=== PATIENT | female | born 1970 | race Caucasian/White ===

== ENCOUNTER 2020-06-19 15:59 | Emergency (ER) | payer BC, OTHER ==
[2020-06-19] MEDS ORDERED: Lidocaine 2% Viscous Solution 15 ML Cup PO ONE (16:19)
[2020-06-19] MEDS ORDERED: Acetaminophen/oxyCODONE 325-10 MG Tab PO ONE (16:19)
[2020-06-19] MEDS ORDERED: Benzocaine 20% Topical Spray UD MUCMEM ONE (16:19)
--- NOTE | 2020-06-19 16:24 | EDM.PDOC ---
ED HPI GENERAL MEDICAL PROBLEM - General Chief Complaint: ENT Problem Stated Complaint: INFECTED TOOTH Time Seen by Provider: 06/19/20 16:01 Source of Information: Reports: Patient History Limitations: Reports: No Limitations - History of Present Illness INITIAL COMMENTS - FREE TEXT/NARRATIVE: HISTORY AND PHYSICAL: History of present illness: Patient is a 49-year-old male who presents to the emergency room with complaints of right posterior molar dental pain since Saturday. She states she has had increased pain over the past few days, increased with chewing or clenching of h er jaw. She is concerned she may have an infection that requires antibiotics. She does have some soft tissue swelling along the gumline. Patient denies any fever, chills, headache, change in vision, syncope or near syncope. Denies any chest pain, back pain, shortness of breath or cough. Denies any GI or symptoms. Review of systems: As per history of present illness and below otherwise all systems reviewed and negative. Past medical history: As per history of present illness and as reviewed below otherwise noncontributory. Surgical history: As per history of present illness and as reviewed below otherwise noncontributory. Social history: See social history for further information Family history: As per history of present illness and as reviewed below otherwise noncontributor y. Physical exam: General: Well developed and well nourished 49-year-old female. Alert and orientated x 3. Nontoxic in appearance and in no mild distress to pain, crying. Vital signs are stable and have been reviewed by me. Nursing notes were reviewed. HEENT: Atraumatic, normocephalic, pupils equal and reactive bilaterally, negative for conjunctival pallor or scleral icterus, mucous membranes moist, dental decay to the left posterior lower molar with erythema along the gumline and tenderness. TMs normal bilaterally, throat clear, neck supple, nontender, trachea midline. No drooling or trismus noted. No meningeal signs. No hot potato voice noted. Lungs: Clear to auscultation, breath sounds equal bilaterally, chest nontender. Normal work of breathing, no accessory muscles used. Heart: S1S2, regular rate and rhythm without overt murmur Abdomen: Soft, nondistended, nontender. Negative for masses or hepatosplenomegaly. Negative for costovertebral tenderness. Skin: Intact, warm, dry. No lesions or rashes noted. Hematologic: No petechiae or purpra. Mucosa appropriate color and normal nail bed color and refill. Extremities: Atraumatic, moves all extremities per self without difficulty or deficits, negative for cords or calf pain. Neurovascular unremarkable. Neuro: Awake, alert, oriented. Cranial nerves II through XII unremarkable. Cerebellum unremarkable. Motor and sensory unremarkable throughout. Exam nonfocal. Psychiatric: Mood and affect are appropriate. Normal thought process. Answering questions appropriately. Notes: I have talked with the patient about today's findings, in addition to providing specific details for plan of care. Reassessment at the time of disposition demonstrates that the patient is in no acute distress. The patient is stable for discharge, counseling was provided and we discussed in great detail signs and symptoms that would prompt them to return to the Emergency Department. Medication, follow up and supportive care measures were reviewed and discussed. Voices understanding and is agreeable to plan of care. Denies any further questions or concerns at this time. Diagnostics: None Therapeutics: Percocet, Pen VK Prescription: Pen VK, Percocet Impression: Dental Abscess Plan: 1. Please take the antibiotic as prescribed. 2. Tylenol and/or ibuprofen as needed for pain management. "Tooth Balls" have been given to you; apply along the gumline every 2-3 hours as needed. Do not swallow these; external use only. 3. Follow-up with a dentist for definitive care. Return to the ED as needed and as discussed. Definitive disposition and diagnosis as appropriate pending reevaluation and review of above. Jaw Pain Score (Numeric/FACES): 8 - Related Data Allergies Allergy/AdvReac Type Severity Reaction Status Date / Time No Known Allergies Allergy Verified 06/19/20 16:13 Home Meds: Home Meds Albuterol Sulfate [Albuterol Sulfate HFA] 2 inh INH Q2HR PRN 08/08/14 [History] Budesonide [Pulmicort] 1 ampule INH BID PRN 09/07/14 [History] Penicillin V Potassium 500 mg PO Q8HR 10 Days #30 tab 06/19/20 [Rx] Past Medical History - Past Health History Medical/Surgical History: Denies Medical/Surgical History HEENT History: Reports: None Cardiovascular History: Reports: None Respiratory History: Reports: Asthma Gastrointestinal History: Reports: None Genitourinary History: Reports: None UM RN History: Reports: None Musculoskeletal History: Reports: None Neurological History: Reports: None Psychiatric History: Reports: None Endocrine/Metabolic History: Reports: None Hematologic History: Reports: None Dermatologic History: Reports: None - Infectious Disease History Infectious Disease History: Reports: None - Past Surgical History Other Female Surgeries/Procedures: breast reduction Social & Family History - Tobacco Use Tobacco Use Status *Q: Never Tobacco User - Caffeine Use Caffeine Use: Reports: None - Recreational Drug Use Recreational Drug Use: No ED ROS ENT - Review of Systems Review Of Systems: Comprehensive ROS is negative, except as noted in HPI. ED EXAM, ENT - Physical Exam Exam: See Below (See dictation) Course - Vital Signs Last Recorded V/S: Last Vital Signs Temp 97 F 06/19/20 16:14 Pulse 98 06/19/20 16:14 Resp 18 06/19/20 16:14 BP 151/90 H 06/19/20 16:14 Pulse Ox 97 06/19/20 16:14 - Orders/Labs/Meds Meds: Medications Discontinued Medications Generic Name Dose Route Start Last Admin Trade Name Amarilis PRN Reason Stop Dose Admin Benzocaine 2 each 06/19/20 16:19 Hurricaine One 20% MUCMEM 06/19/20 16:20 ONETIME ONE Lidocaine HCl 15 ml 06/19/20 16:19 Xylocaine 2% Viscous PO 06/19/20 16:20 ONETIME ONE Oxycodone/Acetaminophen 1 tab 06/19/20 16:19 Percocet 325-10 Mg PO 06/19/20 16:20 ONETIME ONE Penicillin V Potassium 500 mg 06/19/20 16:26 Veetids PO 06/19/20 16:27 NOW STA Penicillin V Potassium 500 mg 06/19/20 16:35 Veetids PO 06/19/20 16:36 NOW STA Departure - Departure Time of Disposition: 16:21 Disposition: Home, Self-Care 01 Clinical Impression: Dental abscess - Discharge Information Prescriptions: Penicillin V Potassium 500 mg PO Q8HR 10 Days #30 tab Referrals: Ning Mahmood, [facility] [employer] [Primary Care Provider] - Forms: ED Department Discharge Sepsis Event Note (ED) - Evaluation Sepsis Screening Result: No Definite Risk - Focused Exam Vital Signs: Vital Signs Temp Pulse Resp BP Pulse Ox 06/19/20 16:14 97 F 98 18 151/90 H 97
[2020-06-19] MEDS ORDERED: Penicillin V Potassium 500 MG Tab PO STA ×2 (16:26→16:35)
[2020-06-19 16:55] VITALS: BP 157/100; PULSE 88
== END 2020-06-19 16:50 | disposition home or self-care (01) ==
LOC: MW.ED 15:59
DX: K04.7 Periapical abscess without sinus (principal); K02.9 Dental caries, unspecified; J45.909 Unspecified asthma, uncomplicated
CPT/HCPCS: 99282; A9270

== ENCOUNTER 2023-04-20 07:11 | Emergency (ER) | payer BC ==
[2023-04-20] MEDS ORDERED: methylPREDNISolone Sodium Succinate 125 MG/2 ML SDV IM ONE (07:35)
[2023-04-20] MEDS ORDERED: Albuterol/Ipratropium 3.0-0.5 MG/3 ML Neb Soln NEB ONE (07:35)
[2023-04-20 09:07] LABS: CORONAVIRUS COVID-19 NAA NEGATIVE (NEGATIVE); INFLUENZA A NAA NEGATIVE (NEGATIVE); INFLUENZA B NAA NEGATIVE (NEGATIVE)
[2023-04-20 09:36] VITALS: BP 121/87; PULSE 89
== END 2023-04-20 09:35 | disposition home or self-care (01) ==
LOC: MW.ED 07:11
DX: J45.901 Unspecified asthma with (acute) exacerbation (principal); Z20.822 Contact with and (suspected) exposure to COVID-19
CPT/HCPCS: 0240U; 71045; 96372; 99285; J2930; 99283; J7620-GY

== ENCOUNTER 2023-07-14 11:31 | Emergency (ER) | payer BC ==
[2023-07-14 12:27] VITALS: BP 116/83
[2023-07-14 13:37] LABS: CORONAVIRUS COVID-19 NAA NEGATIVE (NEGATIVE); INFLUENZA A NAA NEGATIVE (NEGATIVE); INFLUENZA B NAA NEGATIVE (NEGATIVE); RESPIRATORY SYNCYTIAL VIR NAA NEGATIVE (NEGATIVE)
[2023-07-14] MEDS ORDERED: Amoxicillin/Clavulanate K 875-125 MG Tab PO ONE (15:05)
[2023-07-14 15:21] VITALS: PULSE 96
== END 2023-07-14 15:21 | disposition home or self-care (01) ==
LOC: MW.ED 11:31
DX: J01.90 Acute sinusitis, unspecified (principal); J45.909 Unspecified asthma, uncomplicated; Z20.822 Contact with and (suspected) exposure to COVID-19
CPT/HCPCS: 0241U; 71046; 87651; 99284; A9270